=== PATIENT | male | born 1980 | race Caucasian/White ===

== ENCOUNTER 2017-01-01 18:33 | Emergency (ER) | payer BC, OTHER ==
[~2017-01-01] VITALS: Ht 200.7 cm; Wt 143.2 kg
[~2017-01-01 18:33] MED LIST: ABL/15 PO; ATV1 PO; EFF75 PO; FLUD0.1T10 PO; HIV PO; RIVA1TAB4 PO; TOPI100T45 PO
[2017-01-01 18:43] VITALS: TEMP 36.8; Ht 200.7 cm; Wt 143.2 kg
[2017-01-01 19:40] VITALS: O2SAT 97
[2017-01-01 19:51] LABS: ISTAT HEMOGLOBIN 15.6 g/dl (14.0-18.0); ISTAT IONIZED CALCIUM 1.11 mmol/l (1.12-1.32)
[2017-01-01 19:53] LABS: POINT OF CARE TROPONIN I < 0.030 ng/ml (0-0.045)
--- NOTE | 2017-01-01 19:56 | DIAGNOSTIC IMAGING REPORT ---
CHEST ONE VIEW PORTABLE CLINICAL HISTORY: Evaluate Fever/Sepsis CHEST AND SHOULDER PAIN COMPARISON STUDY: 10/26/2015 FINDINGS: The cardiac and mediastinal contours are normal. There is no evidence of focal pulmonary consolidation. There is no evidence of failure. No pleural effusions are visualized.[ IMPRESSION: No active disease in the chest. Electronically signed by: Jah Bobo M.D. 01/01/2017 7:54 PM Dictated Date/Time: 01/01/2017 7:54 PM
[2017-01-01] MEDS ORDERED: LURA80TA PO (19:58)
[2017-01-01] MEDS ORDERED: GABA-113 PO (19:59)
--- NOTE | 2017-01-01 20:00 | EMERGENCY ROOM VISIT NOTE ---
History Report prepared by Jorge: May Mann Under the Supervision of: Dr. Esvin Stanley D.O. First contact with patient: 19:17 Chief Complaint: CHEST PAIN Stated Complaint: CHEST AND SHOULDER PAIN Nursing Triage Summary: Pt complains of chest pain that radiates to back. Pt also SOB. It started 1 hour ago. Pt has history of pulmonary embolisms and stopped taking Zarelto due to losing his insurance. History of Present Illness The patient is a 36 year old male who presents to the Emergency Room with complaints of persistent mid chest pain starting about an hour and a half ago. The patient has a history of pulmonary embolisms. He stopped taking Xarelto about 2 weeks ago. He had an onset of his symptoms while driving. He notes pain radiation to the mid back and left shoulder. He is now having a flushed face and lightheadedness. He denies nausea, vomiting, or any other complaints. Source of History: patient Onset: about an hour and a half ago Position: chest (mid) Timing: other (persistent) Associated Symptoms: No nausea, No vomiting Review of Systems See HPI for pertinent positives & negatives. A total of 10 systems reviewed and were otherwise negative. Past Medical & Surgical Medical Problems: (1) Asthma (2) Bipolar disorder (3) Chest pain (4) Chest pain (5) DVT (deep venous thrombosis) (6) Dyspnea (7) Headache (8) Hypercoagulable state (9) Hypokalemia (10) Leg strain (11) Halfway (Current) Use Of Anticoagulants (12) Low blood pressure (13) Pulmonary embolism (14) Pulmonary embolus (15) Syncope Surgical Problems: (1) History of wisdom tooth extraction (2) Hx of tonsillectomy Family History Cancer Diabetes mellitus FH: thyroid disease Gallbladder disease Heart disease Hypertension Social History Smoking Status: Current Every Day Smoker Drug Use: none Marital Status: single Housing Status: lives with family Occupation Status: employed Current/Historical Medications Scheduled Aripiprazole (Abilify), 15 MG PO HS Fludrocortisone Acetate (Florinef), 0.1 MG PO BID Gabapentin (Neurontin), 600 MG PO TID Lorazepam (Lorazepam), 1 MG PO PRN Lurasidone Hcl (Latuda), 80 MG PO DAILY Rivaroxaban (Xarelto), 20 MG PO DAILY Topiramate (Topamax), 100 MG PO BID Venlafaxine Hcl (Effexor), 75 MG PO BID [Hiv Kit], Unknown Dose PO UD Allergies Coded Allergies: Avocado (Verified Allergy, Severe, sweats, pain, vomiting, 11/11/15) Broccoli (Verified Allergy, Severe, sweats, pain, vomiting, 11/11/15) Cantaloupe (Verified Allergy, Severe, SWEATS, PAIN, VOMITING, 11/11/15) Eggs or Egg-derived Products (Verified Allergy, Severe, vomiting, 11/11/15) Mushroom (Verified Allergy, Intermediate, SWEATS, VOMITING, 11/11/15) Physical Exam Vital Signs Date Time Temp Pulse Resp B/P (MAP) Pulse Ox O2 Delivery O2 Flow Rate FiO2 01/01/17 19:40 97 Room Air 01/01/17 18:43 36.8 86 20 138/81 97 Room Air Physical Exam CONSTITUTIONAL/VITAL SIGNS: Reviewed / noted above. GENERAL: Non-toxic in appearance. INTEGUMENTARY: Warm, dry, and [place]. HEAD: Normocephalic. EYES: without scleral icterus or trauma. ENT/OROPHARYNX: clear and moist. LYMPHADENOPATHY/NECK: Is supple without lymphadenopathy or meningismus. RESPIRATORY: Lungs clear and equal. CARDIOVASCULAR: Regular rate and rhythm. GI/ABDOMEN: Soft and nontender. No organomegaly or pulsatile mass. No rebound or guarding. Normal bowel sounds. EXTREMITIES: Warm and well perfused. BACK: No CVA tenderness. NEUROLOGICAL: Intact without focal deficits. PSYCHIATRIC: normal affect. MUSCULOSKELETAL: Normally developed with good muscle tone. Medical Decision & Procedures ER Provider Diagnostic Interpretation: X ray results and stated below per my interpretation and radiology interpretation. CHEST ONE VIEW PORTABLE CLINICAL HISTORY: Evaluate Fever/Sepsis CHEST AND SHOULDER PAIN COMPARISON STUDY: 10/26/2015 FINDINGS: The cardiac and mediastinal contours are normal. There is no evidence of focal pulmonary consolidation. There is no evidence of failure. No pleural effusions are visualized.[ IMPRESSION: No active disease in the chest. Electronically signed by: Jah Bobo M.D. 01/01/2017 7:54 PM Dictated Date/Time: 01/01/2017 7:54 PM Laboratory Results Test 01/01/17 19:34 01/01/17 19:39 Bedside D-Dimer 184 ng/mlFEU (0-450) Bedside Troponin I < 0.030 ng/ml (0-0.045) Bedside Hemoglobin 15.6 g/dl (14.0-18.0) Bedside Hematocrit 46 % (42-52) Bedside Sodium 141 mEq/L (135-144) Bedside Potassium 3.8 mEq/L (3.3-5.0) Bedside Chloride 102 mEq/L (101-112) Bedside Total CO2 25 mEq/l (24-31) Anion Gap 20.0 mmol/L (16-25) Bedside Blood Urea Nitrogen 16 mg/dl (7-18) Bedside Creatinine 1.0 mg/dl (0.6-1.3) Bedside Glucose (other) 92 mg/dl (70-99) Bedside Ionized Calcium (Krissy) 1.11 mmol/l (1.12-1.32) Laboratory results as stated above per my review. ECG Indication: chest pain, back/shoulder pain Rate (beats per minute): 81 Rhythm: normal sinus Findings: no acute ischemic change, no ectopy ED Course 1916: Previous medical records were reviewed. The patient was evaluated in room C01B. A complete history and physical examination was performed. 1999: On reevaluation, the patient is resting comfortably. I discussed the results and findings with the patient. He verbalized agreement of the treatment plan. He was discharged home. Medical Decision Medication Reconciliation: I attest that I have personally reviewed the patient' s current medication list. Patient was found to have a slightly elevated blood pressure due to circumstances. I do not believe that the patient requires hypertension monitoring. the differential was considered includes acute myocardial infarction, acute coronary syndrome, myocarditis, pericarditis, pericardial effusions /tamponad, esophageal perforation, thoracic aortic dissection, pulmonary embolism, pneumonia, pneumothorax, pancreatitis, shingles, acute cholecystitis, perforated abdominal viscus. This is a 36-year-old male who presents to the ED with chief complaint of left- sided chest pain. The patient states that his symptoms started about 1-1/2 hours ago. He states that it radiates into his left shoulder into his back. The patient also states that he feels flush in the face. He stopped taking Xarelto 2 weeks ago. He had a history of PE. Patient's vital signs are normal. His CBC is normal. D-dimer is negative. Troponin is negative. PRP is normal. Chest x-ray did not show acute disease. Exam was unremarkable. The patient was told the results. He is felt to be stable for discharge. He has an appointment for the [facility] to get back on his Xaralto. Impression Primary Impression: Left sided chest pain Scribe Attestation The scribe's documentation has been prepared under my direction and personally reviewed by me in its entirety. I confirm that the note above accurately reflects all work, treatment, procedures, and medical decision making performed by me. Departure Information Dispostion Home / Self-Care Referrals Anuj Tadeo DO (PCP) Forms HOME CARE DOCUMENTATION FORM, IMPORTANT VISIT INFORMATION Patient Instructions My [facility] Additional Instructions Follow-up with your doctor for further care and evaluation in 1-2 days. Return to the emergency department for worsening or new symptoms or any concerns. You have been examined and treated today on an emergency basis only. This is not a substitute for, or an effort to provide, complete comprehensive medical care. It is impossible to recognize and treat all injuries or illnesses in a single emergency department visit. It is therefore important that you follow up closely with your doctor. Call as soon as possible for an appointment.
[2017-01-01] MEDS ORDERED: LAMO100T16 PO (20:02)
[2017-01-01 20:32] VITALS: BP 141/82; PULSE 78; O2SAT 97
== END 2017-01-01 20:35 | disposition home or self-care (01) ==
LOC: C.EDB 18:34 → C.EDC 20:35
DX: R07.9 Chest pain, unspecified (principal); Z86.711 Personal history of pulmonary embolism; Z86.718 Personal history of other venous thrombosis and embolism; J45.909 Unspecified asthma, uncomplicated; F31.9 Bipolar disorder, unspecified; Z80.9 Family history of malignant neoplasm, unspecified; Z83.3 Family history of diabetes mellitus; Z82.49 Family history of ischemic heart disease and other diseases of the circulatory system; Z83.49 Family history of other endocrine, nutritional and metabolic diseases; F17.210 Nicotine dependence, cigarettes, uncomplicated; Z79.01 Long term (current) use of anticoagulants; Z79.899 Other long term (current) drug therapy